=== PATIENT | female | born 2000 | race Caucasian/White ===

== ENCOUNTER → 2022-04-24 | Outpatient (REF) | payer OTHER | LOC: M WUC 12:05 | PROVIDERS: ATTEND Student in an Organized Health Care Education/Training Program | DX: J02.9 Acute pharyngitis, unspecified (principal) ==

== ENCOUNTER → 2023-02-26 | Outpatient (REF) | payer OTHER ==
[2023-02-26 18:36] LABS: HIV 1&2 SCREEN NEGATIVE (NEGATIVE)
[2023-02-26 19:04] LABS: CHLAMYDIA DNA AMPLIFICATION NEGATIVE (NEGATIVE); GC DNA AMPLIFICATION NEGATIVE (NEGATIVE)
== END ==
LOC: M LABWUC 16:16
PROVIDERS: ATTEND Nurse Practitioner Family
DX: R30.0 Dysuria (principal); Z11.3 Encounter for screening for infections with a predominantly sexual mode of transmission

== ENCOUNTER 2023-05-10 11:23 | Emergency (ER) | payer OTHER ==
[~2023-05-10] VITALS: Ht 165.1 cm; Wt 94.1 kg
[2023-05-10] MEDS ORDERED: SEMA0.257 SQ (11:26)
[2023-05-10 11:52] LABS: BASO % 0.4 % (0.0-1.0); EOS % 0.5 % (0.0-3.0); HEMOGLOBIN 15.5 g/dl (12.0-15.5); LYMPH # 2.2 10^3/uL (1.5-5.0); LYMPH % 28.1 % (24.0-44.0); MEAN CORPUSCULAR HEMOGLOBIN 28.7 pg (27.0-33.0); MEAN CORPUSCULAR HGB CONC 34.4 g/dl (32.0-36.5); MEAN CORPUSCULAR VOLUME 83.3 fl (80.0-96.0); MONO # 0.4 10^3/uL (0.0-0.8); MONO % 5.7 % (2.0-8.0); NEUTROPHILS # 5.1 10^3/uL (1.5-8.5); NEUTROPHILS % 65.2 % (36.0-66.0); PLATELET COUNT, AUTOMATED 338 10^3/uL (150-450); WHITE BLOOD COUNT 7.8 10^3/uL (4.0-10.0)
[2023-05-10 12:17] LABS: ALBUMIN 4.2 G/DL (3.2-5.2); BILIRUBIN,DIRECT 0.2 MG/DL (<0.4); BILIRUBIN,TOTAL 0.5 MG/DL (0.3-1.2); TOTAL PROTEIN 7.9 G/DL (5.7-8.2)
[2023-05-10] MEDS ORDERED: KETOROLAC 30 MG/ML 1ML VIAL IV ONE (12:30)
[2023-05-10] MEDS ORDERED: MAALOX 30 ML SUSP *UDC PO ONE (13:30)
[2023-05-10 14:49] VITALS: BP 137/85; TEMP 99; O2SAT 99
== END 2023-05-10 14:51 | disposition home or self-care (01) ==
LOC: M ED 11:23
DX: R10.9 Unspecified abdominal pain (principal); R11.0 Nausea; T88.7XXA Unspecified adverse effect of drug or medicament, initial encounter; Z79.4 Long term (current) use of insulin
CPT/HCPCS: 74018; 76775; 80047; 80076; 81001; 83690; 84702; 85025; 96374; 99284; J1885